=== PATIENT | male | born 1995 | race Caucasian/White ===

== ENCOUNTER 2017-12-04 20:30 | Emergency (ER) | payer OTHER ==
[~2017-12-04] VITALS: Ht 177.8 cm; Wt 72.0 kg
[~2017-12-04 20:30] MED LIST: OSEL75 PO; PROT40TA PO; ZOFR4TAB3 SL
[2017-12-04 20:34] VITALS: BP 122/77; PULSE 101; RESP 18; TEMP 98.7; O2SAT 98
--- NOTE | 2017-12-04 20:58 | PD ---
HPI Chief Complaint: ENT Complaint Time Seen by Provider: 20:44 Travel History International Travel<30 days: No Contact w/Intl Traveler<30days: No Traveled to known affect area: No History of Present Illness HPI This is a 22-year-old male who presents for evaluation of sore throat, fevers, chills, myalgias. Reports that he has had a sore throat and headache for the past 2 days. Today he woke up with myalgias, chills, fever with a temperature of 101.7 at home. He reports 3 episodes of nonbloody nonbilious emesis today. He reports that he took some Motrin 4 hours ago and Tylenol 7 hours ago with improvement in his symptoms. He denies cough, congestion, abdominal pain, diarrhea, constipation, rash, recent travel. No sick contacts. No other complaints at this time. PFSH Past Medical History Asthma: No Blood Disorders: No Anxiety: No Depression: No Heart Rhythm Problems: No Cancer: No Cardiovascular Problems: No High Cholesterol: No Chemotherapy: No Chest Pain: No Congestive Heart Failure: No COPD: No Developmental Delay: No Diabetes: No Diminished Hearing: No Endocrine: No Gastrointestinal Disorders: Yes (HEARTBURN) Genitourinary: No Hypertension: No Immune Disorder: No Implanted Vascular Access Dvce: No Musculoskeletal: No Neurologic: No Psychiatric: No Reproductive: No Respiratory: No Immunizations Current: Yes Radiation Therapy: No Sleep Apnea: No Thyroid Disease: No Tetanus Vaccination: < 5 Years Influenza Vaccination: No Past Surgical History Other Surgery: No Social History Alcohol Use: No Tobacco Use: No Substance Use: No Allergies-Medications (Allergen,Severity, Reaction): Coded Allergies: Sulfa (Sulfonamide Antibiotics) (Unverified Allergy, Intermediate, RASH, ) Reported Meds & Prescriptions Reported Meds & Active Scripts Active Zofran (Ondansetron HCl) 4 Mg Tab 4 Mg PO Q6HR PRN Protonix (Pantoprazole Sodium) 40 Mg Tab 40 Mg PO DAILY 15 Days Tamiflu 75 mg (Oseltamivir Phosphate) 75 Mg Cap 75 Mg PO BID 4 Days Zofran ODT (Ondansetron HCl) 4 Mg Tab 4 Mg SL Q6H PRN FOR NAUSEA/VOMITING Review of Systems Except as stated in HPI: all other systems reviewed are Neg Physical Exam Narrative GENERAL: Well-developed well-nourished male in no acute distress SKIN: Warm and dry. HEAD: Atraumatic. Normocephalic. EYES: Pupils equal and round. No scleral icterus. No injection or drainage. ENT: No nasal bleeding or discharge. Mucous membranes pink and moist. There is oral pharyngeal erythema without exudate. Uvula midline with no mass-effect. NECK: Trachea midline. No JVD. No lymphadenopathy. Neck supple with full range of motion. CARDIOVASCULAR: Regular rate and rhythm. No murmur appreciated. RESPIRATORY: No accessory muscle use. Clear to auscultation. Breath sounds equal bilaterally. GASTROINTESTINAL: Abdomen soft, non-tender, nondistended. Hepatic and splenic margins not palpable. MUSCULOSKELETAL: No obvious deformities. No clubbing. No cyanosis. No edema. NEUROLOGICAL: Awake and alert. No obvious cranial nerve deficits. Motor grossly within normal limits. Normal speech. PSYCHIATRIC: Appropriate mood and affect; insight and judgment normal. Data Data Last Documented VS Vital Signs Date Time Temp Pulse Resp B/P (MAP) Pulse Ox O2 Delivery O2 Flow Rate FiO2 12/04/17 20:34 98.7 101 18 122/77 (92) 98 Room Air Orders Orders Influenzae A/B Antigen (12/04/17 20:50) Group A Rapid Strep Screen (12/04/17 20:50) Ondansetron Odt (Zofran Odt) (12/04/17 21:00) Acetaminophen (Tylenol) (12/04/17 21:00) Oral Rehydration (12/04/17 20:50) Strep Culture (Group A) (12/04/17 21:27) Ed Discharge Order (12/04/17 22:07) [facility] Medical Decision Making Medical Screen Exam Complete: Yes Emergency Medical Condition: Yes Medical Record Reviewed: Yes Differential Diagnosis Pharyngitis, tonsillitis, peritonsillar abscess, infectious mononucleosis, gastroenteritis Narrative Course 22-year-old male with 2 days of sore throat and headache, now with fevers, chills, myalgias, some nausea and vomiting today. On examination he appears to have pharyngitis. His abdomen is soft and nontender. He does not appear dehydrated. He will be given Zofran, Tylenol, oral hydration for symptom treatment. Influenza antigen and rapid strep screen have been ordered. Influenza antigen rapid strep screen are negative however symptoms are most consistent with influenza. He does feel improved after Tylenol and Zofran, primary complaint is myalgias at this point. He was able to tolerate some oral Gatorade. At this point in time supportive care is recommended. He will be discharged with a course of Zofran for nausea. Discussed signs and symptoms that would warrant returning to the emergency room. He is stable for discharge. Diagnosis Primary Impression: Viral syndrome Additional Instructions: Stay well hydrated. Slowly advance diet as tolerated. Tylenol and Motrin alternating as needed for fevers, chills, body aches. Follow-up with primary care physician as needed and return for any acutely new or worsening symptoms. Med/Other Pt SpecificInfo: Prescription(s) given Scripts Ondansetron (Zofran) 4 Mg Tab 4 MG PO Q6HR Y for NAUSEA OR VOMITING, #20 TAB 0 Refills Prov: Nemo Howell MD 12/04/17 Disposition: 01 DISCHARGE HOME Condition: Stable Gabriel Nesbitt Dec 04, 2017 20:58
[2017-12-04] MEDS ORDERED: ACETAMINOPHEN 325 MG TAB PO ONE (21:00)
[2017-12-04] MEDS ORDERED: ONDANSETRON ODT 4 MG TAB PO ONE (21:00)
[2017-12-04] MEDS ORDERED: ZOFR4TAB PO (22:08)
== END 2017-12-04 22:58 | disposition home or self-care (01) ==
LOC: NEPC 20:30
DX: B34.9 Viral infection, unspecified (principal); R12 Heartburn
CPT/HCPCS: 87081; 87804; 87880; 99283